=== PATIENT | female | born 1990 | race Caucasian/White ===

== ENCOUNTER 2019-04-27 14:53 | Outpatient (CLI) | payer OTHER ==
[~2019-04-27] VITALS: Ht 157.5 cm; Wt 116.8 kg
[2019-04-27 15:05] VITALS: Ht 157.5 cm; Wt 116.8 kg
[2019-04-27 15:06] VITALS: BP 130/61
[2019-04-27] MEDS ORDERED: PREN1TAB71 PO (15:08)
--- NOTE | 2019-04-27 16:07 | PN ---
Triage Information Date/Time Reason for visit: DFM Weeks of Gestation 22+ /Para n/a Diabetes: none Hypertention: none Objective Vital Signs Date Temp Pulse Resp B/P (MAP) Pulse Ox O2 O2 Flow FiO2 Time Delivery Rate 04/27/19 98.6 130/61 15:06 (84) Heart Rate: 140's Contractions: None Disposition: Discharge Assessment/Plan Ultrasound reviewed +FM Questions answered Precautions discussed Follow up with provider ELDER SCOTT M.D. April 27, 2019 16:07
--- NOTE | 2019-04-27 16:10 | TRIAGE ---
OB Triage Datetime Report Generated by CPN: 04/27/2019 16:10 Datetime: 04/27/2019 15:27 Heart Rate FHR Baseline Rate: 145 Monitor Mode: Doppler Datetime: 04/27/2019 15:02 Stage of : OB Triage Assessment Type: Triage Maternal Assessment Level of Consciousness: Fully Conscious DTR's/Clonus: DTRs 2+; No Clonus Headache: Denies Blurred Vision: No Respiratory Effort: Unlabored; Regular Rhythm; Equal Expansion Breath Sounds, Left: Clear and Equal Breath Sounds, Right: Clear and Equal Nausea/Vomiting: Denies RUQ Epigastric Pain: Denies Lower Extremities Edema: None Degree: None Upper Extremities Edema: None Degree: None Facial Edema: None Temperature Route: Oral Fall Risk Assessment History of Falling: (0) No Secondary Diagnosis: (0) No Ambulatory Aid: (0) Bedrest/Nurse Assist IV Therapy: (0) No Gait: (0) Normal/Bedrest/Immobile Mental Status: (0) Oriented to Own Ability Fall Score: 0 Fall Risk Score Definition: No Risk: No action required Labor Evaluation Monitor Mode: External Pain Assessment Pain Scale: 0 Pain Presence: None/Denies Pain Type: N/A Datetime: 04/27/2019 15:01 Time of Arrival: 04/27/2019 14:39 EGA: 22.3 Arrived By: Ambulatory Arrived From: Home Chief Complaint: DFM Movement: Decreased Contractions: Denies/Absent Rupture of Membranes: Denies Vaginal Bleeding: None Vaginal Discharge: Denies Recent Sexual Intercouse: Denies Abdominal Trauma: Not Applicable Patient Complaints: Other Time Provider Notified: 04/27/2019 15:55 Provider Notified: DR. SCOTT Initial Plan: [facility]
== END 2019-04-27 16:08 | disposition home or self-care (01) ==
LOC: OBT 14:53 → L-D 14:54 → OBT 16:08
PROVIDERS: ATTEND Obstetrics & Gynecology
DX: O36.8120 Decreased fetal movements, second trimester, not applicable or unspecified (principal); Z3A.22 22 weeks gestation of pregnancy
CPT/HCPCS: 76815; 76817; Z7500; G0463